=== PATIENT | male | born 1965 | race Caucasian/White ===

== ENCOUNTER 2018-10-17 11:36 | Emergency (ER) | payer OTHER, BC ==
[2018-10-17] MEDS ORDERED: HYDROCODONE/ACETAMINOPHEN 10-325 MG TABLET PO ONE (13:44)
--- NOTE | 2018-10-17 13:46 | ER Document Report ---
ED Medical Screen (RME) - General Chief Complaint: Numbness of Arm Stated Complaint: ARM PAIN Time Seen by Provider: 10/17/18 13:44 Notes: Patient is a 53-year-old male presents to the emergency department for left elbow pain. Patient states he does feel as though he overuses his upper extremities at work. States he bought an [id number] elbow brace which he felt helped for a couple of days. States the pain has since resurfaced since he again started using his left upper arm. Patient's denying any chest pain, shortness of breath, numbness or tingling in any extremity. EXTREMITIES: Moves all 4 extremities spontaneously. normal radial and dorsalis pedis pulses bilaterally. No cyanosis. Generalized edema and minor erythema noted to the left elbow. Patient had ice applied to it unsure if this is the cause of the erythema. Patient has pain with supination pronation of the left forearm. Pain upon palpation left elbow. I have greeted and performed a rapid initial assessment of this patient. A comprehensive ED assessment and evaluation of the patient, analysis of test results and completion of the medical decision making process will be conducted by additional ED providers. This medical record was dictated with voice recognizing software. There may be grammatical, syntax errors that are unintended. TRAVEL OUTSIDE OF THE [place] IN LAST 30 DAYS: No - Related Data Allergies/Adverse Reactions: No Known Allergies Allergy (Unverified 10/17/18 11:39) Past Medical History - Social History Chew tobacco use (# tins/day): No Frequency of alcohol use: Occasional Drug Abuse: None Renal/ Medical History: Denies: Hx Peritoneal Dialysis Past Surgical History: Reports: Hx Orthopedic Surgery - back Physical Exam - Vital signs Vitals: Temp Pulse Resp BP Pulse Ox 98.0 F 83 14 147/84 H 96 10/17/18 11:40 10/17/18 11:40 10/17/18 11:40 10/17/18 11:40 10/17/18 11:40 Course - Vital Signs Vital signs: Temp Pulse Resp BP Pulse Ox 98.0 F 83 14 147/84 H 96 10/17/18 11:40 10/17/18 11:40 10/17/18 11:40 10/17/18 11:40 10/17/18 11:40
--- NOTE | 2018-10-17 14:15 | RADIOLOGY REPORT (SQ) ---
EXAM DESCRIPTION: ELBOW LEFT OVER 2 VIEWS COMPLETED DATE/TIME: 10/17/2018 1:57 pm REASON FOR STUDY: pain COMPARISON: None. NUMBER OF VIEWS: Four views. TECHNIQUE: AP, lateral, and both oblique radiographic images acquired of the left elbow. LIMITATIONS: None. FINDINGS: MINERALIZATION: Normal. BONES: No acute fracture or dislocation. No worrisome bone lesions. JOINT: No effusion. SOFT TISSUES: No soft tissue swelling. No foreign body. OTHER: No other significant finding. IMPRESSION: NEGATIVE STUDY OF THE LEFT ELBOW. NO RADIOGRAPHIC EVIDENCE OF ACUTE INJURY. TECHNICAL DOCUMENTATION: JOB ID: [id number] [employer]- All Rights Reserved Reading location - IP/workstation name: [email or web address]
[2018-10-17] MEDS ORDERED: IBUPROFEN 800 MG TABLET PO ONE (14:48)
[2018-10-17] MEDS ORDERED: OXYCODONE-ACETAMINOPHEN 5-325 MG TABLET PO ONE (14:48)
--- NOTE | 2018-10-17 14:54 | ER Document Report ---
Addendum entered and electronically signed by KATHY ERICKSON PA-C 10/17/18 15:02: Discharge - Discharge Clinical Impression: Sprain of left elbow Qualifiers: Encounter type: initial encounter Qualified Code(s): S53.402A - Unspecified sprain of left elbow, initial encounter Condition: Good Disposition: HOME, SELF-CARE Instructions: Sprain ([facility]) Additional Instructions: Ice the elbow for 20 minutes/h. Use the sling. Be sure to remove the arm from the sling 4-5 times a day to complete range of motion exercises so that she do not develop a stiff and joint. Take medication as prescribed. Follow-up with orthopedics in 1 week or see her primary care doctor for further evaluation Prescriptions: Tramadol HCl/Acetaminophen [Ultracet 37.5 mg/325 mg Tablet] 1 each PO Q6HP PRN #15 tablet PRN Reason: Naproxen 500 mg PO BID 5 Days #14 tablet Forms: Return to Work Referrals: CHIO PANCHAL DO [ACTIVE STAFF] - Follow up in 1 week Original Note: ED General - General Chief Complaint: Numbness of Arm Stated Complaint: ARM PAIN Time Seen by Provider: 10/17/18 13:44 Mode of Arrival: Ambulatory Information source: Patient TRAVEL OUTSIDE OF THE [place] IN LAST 30 DAYS: No - HPI Patient complains to provider of: Left elbow injury Onset: Just prior to arrival Onset/Duration: Sudden Quality of pain: Sharp, Stabbing Severity: Severe Pain Level: 5 Associated symptoms: None Exacerbated by: Denies Relieved by: Denies Similar symptoms previously: No Recently seen / treated by doctor: No Notes: 53-year-old male coming in today with. He was helping a colleague lift hydraulic implement that weighed approximately 500 pounds and felt a sharp stabbing pain in his left elbow. Having pain shooting up and down the elbow now. Hurts to flex and extend the elbow. - Related Data Allergies/Adverse Reactions: No Known Allergies Allergy (Unverified 10/17/18 11:39) Past Medical History - General Information source: Patient - Social History Smoking Status: Current Every Day Smoker Chew tobacco use (# tins/day): No Frequency of alcohol use: Occasional Drug Abuse: None Family History: Reviewed & Not Pertinent Patient has suicidal ideation: No Patient has homicidal ideation: No Renal/ Medical History: Denies: Hx Peritoneal Dialysis Past Surgical History: Reports: Hx Orthopedic Surgery - back Review of Systems - Review of Systems Notes: Constitutional: No fevers. No chills. EENT: No eye redness. No eye pain. No ear pain. No sore throat. Cardiovascular: No chest pain. No palpitations. Respiratory: No cough. No shortness of breath. No respiratory distress. Gastrointestinal: No abdominal pain. No nausea, vomiting, or diarrhea. Genitourinary: Atraumatic. No lesions. No pain. No discharge. Musculoskeletal: Left elbow pain Skin: No rash or lesions. Lymphatic: No swollen lymph nodes. Neurologic: No headache. No syncope. Psychiatric: No suicidal or homicidal ideation. Physical Exam - Vital signs Vitals: Temp Pulse Resp BP Pulse Ox 98.0 F 83 14 147/84 H 96 10/17/18 11:40 10/17/18 11:40 10/17/18 11:40 10/17/18 11:40 10/17/18 11:40 - Notes Notes: General: Well-developed, well-nourished. In no acute distress. Non-toxic appearing. Cardiac: Well-perfused. Regular rate and rhythm. No murmurs, rubs, or gallops. Pulmonary: No respiratory distress. No cyanosis. Bilateral lung fiels are clear to auscultation. Abdominal: Non-distended. Non-rigid. Bowels sounds are present in all four quadrants. No guarding or rebound. HEENT: Head is atraumatic. Conjunctivae not reddened. No tearing. PERRL. EOMI. Orbits atraumatic. No periorbital swelling or erythema. Oropharynx is without erythema, swelling, or exudates. Neck: Supple. No adenopathy. No meningismus. Dermatologic: Warm with good turgor. No rash. Atraumatic. Chest: Atraumatic. No chest wall tenderness to palpation. Musculoskeletal: Left upper extremity is evaluated. Distal neurovascular exam is intact. Is no soft tissue swelling. No erythema. No heat. Point tenderness to palpation over the olecranon of the left elbow. Otherwise normal range of motion murphy in the left hand, left wrist, and left shoulder. There is no obvious bony deformities Genitourinary: Examination deferred Neurologic: No gross neurologic deficits. Psychiatric: Normal mood. Course - Re-evaluation Re-evalutation: 10/17/18 14:53 X-rays are negative. Probable tendon sprain. Will treat with anti- inflammatories and pain medication. Also put the patient in a sling. - Vital Signs Vital signs: Temp Pulse Resp BP Pulse Ox 98.0 F 83 14 147/84 H 96 10/17/18 11:40 10/17/18 11:40 10/17/18 11:40 10/17/18 11:40 10/17/18 11:40 Discharge - Discharge Clinical Impression: Sprain of left elbow Qualifiers: Encounter type: initial encounter Qualified Code(s): S53.402A - Unspecified sprain of left elbow, initial encounter Condition: Good Disposition: HOME, SELF-CARE Instructions: Sprain ([facility]) Additional Instructions: Ice the elbow for 20 minutes/h. Use the sling. Be sure to remove the arm from the sling 4-5 times a day to complete range of motion exercises so that she do not develop a stiff and joint. Take medication as prescribed. Follow-up with orthopedics in 1 week or see her primary care doctor for further evaluation Prescriptions: Tramadol HCl/Acetaminophen [Ultracet 37.5 mg/325 mg Tablet] 1 each PO Q6HP PRN #15 tablet PRN Reason: Naproxen 500 mg PO BID 5 Days #14 tablet Referrals: CHIO PANCHAL DO [ACTIVE STAFF] - Follow up in 1 week
[2018-10-17 15:26] VITALS: BP 140/34
== END 2018-10-17 15:25 | disposition home or self-care (01) ==
LOC: ER 11:36
DX: S53.402A Unspecified sprain of left elbow, initial encounter (principal); M25.522 Pain in left elbow; X50.0XXA Overexertion from strenuous movement or load, initial encounter; Y99.0 Civilian activity done for income or pay; F17.200 Nicotine dependence, unspecified, uncomplicated
CPT/HCPCS: 99284

== ENCOUNTER 2018-10-28 19:13 | Emergency (ER) | payer OTHER, BC ==
[2018-10-28 19:19] VITALS: BP 175/98
--- NOTE | 2018-10-28 20:25 | RADIOLOGY REPORT (SQ) ---
EXAM DESCRIPTION: Left elbow RadLex: XR ELBOW 3 VIEWS Views: 4 CLINICAL HISTORY: 53 years Male, pain COMPARISON: None. FINDINGS: Negative for acute fracture, dislocation, or radiopaque foreign body. No joint effusion. IMPRESSION: 1. No acute findings.
[2018-10-28] MEDS ORDERED: HYDROCODONE/ACETAMINOPHEN 5-325 MG (6 TAB/ER DISP) PO PRN (20:58)
--- NOTE | 2018-10-28 21:05 | ER Document Report ---
HPI - HPI Time Seen by Provider: 10/28/18 20:43 Pain Level: 5 Notes: Patient is a 53-year-old male who presents to the emergency department with a chief complaint of left elbow pain. 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 He was placed in a sling and was told to follow-up with orthopedics. Patient continues to have left elbow pain. Patient did follow-up with Dr. Garcia last , was placed on Meloxicam and patient is to have an MRI of his left elbow. Patient reports that the orthopedics placed him in a left wrist splint. Patient denies injury to the left wrist. Patient states he was placed in this to avoid using his left hand which causes more pain into his left elbow. Patient states that the meloxicam that he was giving is not working and causes an upset stomach. Patient has also attempted to try Aleve which upset his stomach as well. Patient requesting something different for his pain as well as a work note. She denies numbness or tingling to the left lower arm. - MUSCULOSKELETAL Musculoskeletal: REPORTS: Extremity pain - left arm and hand Past Medical History - General Information source: Patient - Social History Smoking Status: Never Smoker Chew tobacco use (# tins/day): No Frequency of alcohol use: None Drug Abuse: None Family History: Reviewed & Not Pertinent Patient has suicidal ideation: No Patient has homicidal ideation: No - Past Medical History Cardiac Medical History: Reports: None Pulmonary Medical History: Reports: None EENT Medical History: Reports: None Neurological Medical History: Reports: None Endocrine Medical History: Reports: None Renal/ Medical History: Reports: None. Denies: Hx Peritoneal Dialysis Malignancy Medical History: Reports None GI Medical History: Reports: None Musculoskeletal Medical History: Reports None Skin Medical History: Reports None Psychiatric Medical History: Reports: None Traumatic Medical History: Reports: None Infectious Medical History: Reports: None Surgical Hx: Negative Past Surgical History: Reports: Hx Orthopedic Surgery - back Vertical Provider Document - CONSTITUTIONAL Agree With Documented VS: Yes Exam Limitations: No Limitations General Appearance: No Apparent Distress - INFECTION CONTROL TRAVEL OUTSIDE OF THE [place] IN LAST 30 DAYS: No - HEENT HEENT: Atraumatic, Normocephalic - NECK Neck: Normal Inspection - RESPIRATORY Respiratory: Breath Sounds Normal, No Respiratory Distress - CARDIOVASCULAR Cardiovascular: Regular Rate, Regular Rhythm - GI/ABDOMEN Gastrointestinal: Abdomen Soft, Abdomen Non-Tender - MUSCULOSKELETAL/EXTREMETIES Notes: Very mild edema to the left elbow, pain with pronation, supination, flexion and extension. Patient does have full ROM to left elbow joint although the movement induces pain. No erythema. No open wound. + 2 strong left radial and brachial pulse. Strong state game protector to left hand. Movement of fingers and left hand induces pain to left elbow. - NEURO Level of Consciousness: Awake, Alert, Appropriate - DERM Integumentary: Warm, Dry, No Rash Course - Vital Signs Vital signs: Temp Pulse Resp BP Pulse Ox 98.2 F 64 16 175/98 H 99 10/28/18 19:17 10/28/18 19:17 10/28/18 19:17 10/28/18 19:17 10/28/18 19:17 - Diagnostic Test Radiology reviewed: Reports reviewed Radiology results interpreted by me: 10/29/18 X-ray did not show any dislocation, fracture, or any abnormalities. Discharge - Discharge Clinical Impression: Elbow pain, left Condition: Stable Disposition: HOME, SELF-CARE Additional Instructions: Today you were seen in the emergency department for left elbow pain. Your x-ray was negative. You were seen last with Dr. Garcia who is a skin specialist. Please continue follow-up with him as well as scheduling your MRI of your left elbow. Continue to use the left arm splint as given by orthopedics as needed for comfort. Rest your left arm. Use the sling as needed. Elevate the left arm and ice intermittently. You had stated that the meloxicam and Aleve upsets your stomach, you may take this on a full stomach as well as using Pepcid [id number]. I am prescribing you a dose-shankar of [place] which is a narcotic, please be very careful when taking this medication as it can make you sleepy. Do not drive or operate heavy machinery while on this medication. Do not take Tylenol on this medication as [place] has a small dose of Tylenol in it. Please follow-up with Dr. Garcia for further pain control. Please return to the emergency department if worsening of symptoms to include inability to move elbow at the joint, redness, swelling, fever, or any worsening signs or symptoms. Forms: Special Work Note Referrals: CIERA HERNANDEZ MD [Primary Care Provider] - Follow up as needed
== END 2018-10-28 21:00 | disposition home or self-care (01) ==
LOC: ER 19:13
DX: M25.522 Pain in left elbow (principal); M25.422 Effusion, left elbow; M79.642 Pain in left hand; W20.8XXA Other cause of strike by thrown, projected or falling object, initial encounter; Y93.89 Activity, other specified; Y99.0 Civilian activity done for income or pay
CPT/HCPCS: 99283

== ENCOUNTER → 2019-04-16 | Outpatient (CLI) | payer BC, MEDICARE, OTHER ==
[2019-04-16 13:22] LABS: ANION GAP 9 (5-19); BLOOD UREA NITROGEN 14 mg/dL (7-20); CALCIUM 10.2 mg/dL (8.4-10.2); CARBON DIOXIDE 28 mmol/L (22-30); CHLORIDE 102 mmol/L (98-107); GLUCOSE 121 mg/dL (75-110); POTASSIUM 4.9 mmol/L (3.6-5.0)
--- NOTE | 2019-04-16 19:02 | EKG REPORT ---
SEVERITY:- ABNORMAL ECG - SINUS RHYTHM INFERIOR INFARCT, OLD : Confirmed by: Estefania Richards MD 16-Apr-2019 19:01:07
== END ==
LOC: OD 12:12
PROVIDERS: ATTEND Orthopaedic Surgery
DX: Z01.810 Encounter for preprocedural cardiovascular examination (principal); Z01.818 Encounter for other preprocedural examination; Z01.89 Encounter for other specified special examinations
CPT/HCPCS: 93005; 36415; 80048; 87070; 93010; G0480; 80323

== ENCOUNTER → 2019-04-23 | Outpatient (CLI) | payer MEDICARE ==
[2019-04-26 08:46] LABS: COTININE 5.4 ng/mL (.); NICOTINE None Detected (.)
== END ==
LOC: OD 12:50
PROVIDERS: ATTEND Orthopaedic Surgery
DX: Z01.818 Encounter for other preprocedural examination (principal); G89.29 Other chronic pain
CPT/HCPCS: 36415; G0480; 80323

== ENCOUNTER 2019-06-23 15:54 | Emergency (ER) | payer MEDICARE ==
--- NOTE | 2019-06-23 17:41 | ER Document Report ---
ED Medical Screen (RME) - General Chief Complaint: Neck Pain >24hrs old Stated Complaint: NECK PAIN Time Seen by Provider: 06/23/19 17:17 Primary Care Provider: PEDRO MALIK MD [ASSOCIATE] - Follow up as needed Notes: Patient is a 54-year-old male who presents emergency department with a chief complaint of headache. Patient reports he had a cervical fusion on May 05 at [facility] by Dr. Malik. He reports that his C5 and C6 were fused. Patient reports then he has had headaches even prior to the surgery but now it is worse. Patient reports he also has a neck pain. Patient reports this is been present since surgery but is only cleared to take Tylenol. Patient reports he did take Tylenol at 1:30 PM. Patient denies nausea or vomiting but does report light sensitivity. Patient reports that his headache is located to the posterior head and posterior neck. Patient reports that certain movements of his neck causes a sharp shooting nerve type pain down his left arm. Patient denies fever. Patient reports that he was at therapy today and he did discuss his symptoms with his therapist and was told to come here for an evaluation. Patient denies numbness or tingling to his upper or lower extremities. TRAVEL OUTSIDE OF THE [place] IN LAST 30 DAYS: No - Related Data Allergies/Adverse Reactions: No Known Allergies Allergy (Verified 10/28/18 19:16) Past Medical History - Social History Frequency of alcohol use: None Drug Abuse: None Renal/ Medical History: Denies: Hx Peritoneal Dialysis Past Surgical History: Reports: Hx Orthopedic Surgery - back Physical Exam - Vital signs Vitals: Temp Pulse Resp BP Pulse Ox 98.2 F 74 16 151/88 H 95 06/23/19 16:00 06/23/19 16:00 06/23/19 16:00 06/23/19 16:00 06/23/19 16:00 Course - Re-evaluation Re-evalutation: 06/23/19 17:36 I did attempt to page Dr. Malik, waiting for a call back. 06/23/19 18:16 I did attempt to page Dr. Malik, no answer. 06/23/19 18:[address] Garcia the power generation equipment repairer physician for [facility], waiting for call back. 06/23/19 18:[address] Garcia to make him aware of the patient's case and symptoms. He states that typically being 6 weeks plus out from surgery there should be no contraindication to receive the migraine cocktail, to include Toradol, Benadryl and Reglan. I did ask him this due to the patient stating that he cannot take ibuprofen and has not been cleared by his surgeon to take ibuprofen. Dr. Garcia states he would not prescribe anything for his discomfort (boni NSAIDS) and would like him to follow-up in the office this week, call office for an appointment tomorrow. Patient and spouse updated with this information. Denies questions at this time. - Vital Signs Vital signs: Temp Pulse Resp BP Pulse Ox 98.2 F 74 16 151/88 H 95 06/23/19 16:00 06/23/19 16:00 06/23/19 16:00 06/23/19 16:00 06/23/19 16:00 Doctor's Discharge - Discharge Referrals: PEDRO MALIK MD [ASSOCIATE] - Follow up as needed
[2019-06-23] MEDS ORDERED: METOCLOPRAMIDE HCL 10 MG TABLET PO ONE (18:47)
[2019-06-23] MEDS ORDERED: DIPHENHYDRAMINE HCL 50 MG CAPSULE PO ONE (18:47)
[2019-06-23] MEDS ORDERED: KETOROLAC TROMETHAMINE INJ/PF 30 MG/1 ML SDV IM ONE (18:47)
[2019-06-23] MEDS ORDERED: CYCLOBENZAPRINE HCL 10 MG TABLET PO ONE (20:21)
--- NOTE | 2019-06-23 20:22 | ER Document Report ---
ED General - General TRAVEL OUTSIDE OF THE [place] IN LAST 30 DAYS: No - General Chief Complaint: Neck Pain >24hrs old Stated Complaint: NECK PAIN Time Seen by Provider: 06/23/19 17:17 Primary Care Provider: PEDRO MALIK MD [ASSOCIATE] - Follow up tomorrow Notes: Patient is a 54-year-old male who presents to the emergency department with a chief complaint of neck pain. Recently had neck surgery in April. Patient states that he feels like it is more nerve pain than muscle pain. Describes it as a shocking pain. Patient states that he is currently on Robaxin, but feels like the medication is not working. (JOSE JUAN CODY) - Related Data Allergies/Adverse Reactions: No Known Allergies Allergy (Verified 10/28/18 19:16) Past Medical History - Social History Smoking Status: Never Smoker Frequency of alcohol use: None Drug Abuse: None Family History: Reviewed & Not Pertinent Patient has suicidal ideation: No Patient has homicidal ideation: No Renal/ Medical History: Denies: Hx Peritoneal Dialysis Past Surgical History: Reports: Hx Orthopedic Surgery - back Review of Systems - Review of Systems Notes: REVIEW OF SYSTEMS: CONSTITUTIONAL : Denies recent illness. Denies recent unintentional weight loss. Denies fever, chills, or sweats. EENT: Denies eye, ear, throat, or mouth pain, discharge, or symptoms. Denies nasal or sinus congestion. CARDIOVASCULAR: Denies chest pain. RESPIRATORY: Denies shortness of breath, cough, congestion, difficulty breathing, or wheezing. GASTROINTESTINAL: Denies nausea, vomiting, and diarrhea. Denies abdominal pain. Denies constipation. GENITOURINARY: Denies difficulty urinating, burning, blood in urine, urgency or frequency. MUSCULOSKELETAL: Denies back pain. Denies joint pain or swelling. See HPI. SKIN: Denies rash, itchiness, or lesions HEMATOLOGIC : Denies easy bruising or bleeding. LYMPHATIC: Denies swollen, painful, enlarged glands. NEUROLOGICAL: Denies weakness. Denies headache. Denies altered mental status. Denies alteration in speech. See HPI PSYCHIATRIC: Denies stress, anxiety, alteration in sleep patterns, or depression. All other systems reviewed and negative. (JOSE JUAN CODY) Physical Exam - Vital signs Vitals: Temp Pulse Resp BP Pulse Ox 98.2 F 74 16 151/88 H 95 06/23/19 16:00 06/23/19 16:00 06/23/19 16:00 06/23/19 16:00 06/23/19 16:00 - Notes Notes: PHYSICAL EXAMINATION: GENERAL: Appears well, healthy, well-nourished, no acute distress. HEAD: Normocephalic, atraumatic. EYES: PERRL, conjunctiva normal, all extraocular movements intact, sclera nonicteric ENT: Moist mucous membranes. NECK: Supple, no noticeable swelling, redness, rash. Tenderness to paraspinal muscles of neck. LUNGS: Equal breath sounds bilaterally and clear to auscultation. No wheezes rales or rhonchi. CARDIOVASCULAR: S1-S2, regular rate, regular rhythm. Radial pulses 2+, normal. ABDOMEN: Normoactive bowel sounds. Soft, nontender, no guarding, no rebound tenderness, and no masses palpated. EXTREMITIES: Normal strength and range of motion, no pitting or edema. No cyanosis. NEUROLOGICAL: Moves all extremities upon command. Strength 5/5 in all extremities. PSYCH: Normal mood, normal affect. SKIN: Warm, dry. No rash, lesions, ulcerations noted. Normal skin turgor. (JOSE JUAN CODY) Course - Re-evaluation Re-evalutation: 06/25/19 10:29 The provider in triage spoke with Dr. Malik, who states that the patient can follow up in the office tomorrow and is not needing any further imaging at this time. I offered the patient cholesterol instead of Robaxin since he is not having relief with Robaxin. Patient states that he does not feel any different receiving a migraine cocktail. I strongly suggest that he see his surgeon tomorrow. He is in agreement with this plan. I have a very low suspicion for any life-threatening etiology at this time. Follow-up precautions were given. Verbal discharge instructions were given to the patient. They verbalized understanding. They are stable for discharge. (JOSE JUAN CODY) - Vital Signs Vital signs: Temp Pulse Resp BP Pulse Ox 97.9 F 86 20 140/80 H 96 06/23/19 20:28 06/23/19 20:28 06/23/19 20:28 06/23/19 20:28 06/23/19 20:28 Discharge - Discharge Clinical Impression: Neck pain Condition: Stable Disposition: HOME, SELF-CARE Additional Instructions: You were seen today in the emergency department for neck pain. Your surgeon would like you to follow-up with him tomorrow. Please come in for single morning and make an appointment. You are being placed on Flexeril, a muscle relaxer. Please stop taking your Robaxin. If you are unable to move, have worsening symptoms, or develop weakness, please return to the emergency depar tment. Prescriptions: Cyclobenzaprine HCl [Flexeril 10 mg Tablet] 10 mg PO TIDP PRN #15 tab PRN Reason: Referrals: PEDRO MALIK MD [ASSOCIATE] - Follow up tomorrow
[2019-06-23 20:35] VITALS: BP 140/80
== END 2019-06-23 20:35 | disposition home or self-care (01) ==
LOC: ER 15:54
DX: M54.2 Cervicalgia (principal); Z79.899 Other long term (current) drug therapy; Z98.890 Other specified postprocedural states
CPT/HCPCS: 99283; 96372; A9270 ×3; J1885